=== PATIENT | male | born 1945 | race Caucasian/White ===

== ENCOUNTER 2018-02-27 22:42 | Emergency (ER) | payer MEDICARE, OTHER ==
[2018-02-27 22:54] VITALS: RESP 18
--- NOTE | 2018-02-27 23:39 | XR ---
EXAMINATION TYPE: XR ankle complete RT DATE OF EXAM: 02/27/2018 COMPARISON: NONE HISTORY: Ankle pain TECHNIQUE: 3 views FINDINGS: I see no fracture nor dislocation. Ankle mortise is anatomic. There is an Achilles calcanea l spur. IMPRESSION: Calcaneal spurring. No fracture seen.
--- NOTE | 2018-02-28 00:42 | ED ---
Lower Extremity Injury HPI - General Chief Complaint: Extremity Injury, Lower Stated Complaint: Ankle Injury Time Seen by Provider: 02/28/18 00:27 Source: patient, RN notes reviewed Mode of arrival: ambulatory Limitations: no limitations - History of Present Illness Initial Comments: This is a 72-year-old male who presents to the emergency department with chief complaint of right ankle injury. Patient states that at 4 PM he was pushing a bin of cedar. He states that he felt a sudden tear in his ankle like something gave away. He thinks that he tore his Achilles tendon. He complains of pain to the right ankle and right calf. Denies any other injuries or trauma. States he is bearing weight and ambulating but that it is sore. Denies any recent illnesses or infections. Denies fevers or chills, chest pain shortness breath, abdominal pain, nausea or vomiting. - Related Data Allergies Allergy/AdvReac Type Severity Reaction Status Date / Time No Known Allergies Allergy Verified 02/27/18 22:53 Review of Systems ROS Statement: Those systems with pertinent positive or pertinent negative responses have been documented in the HPI. ROS Other: All systems not noted in ROS Statement are negative. Past Medical History Past Medical History: Hyperlipidemia History of Any Multi-Drug Resistant Organisms: None Reported Past Surgical History: Orthopedic Surgery Past Psychological History: No Psychological Hx Reported Smoking Status: Never smoker Past Alcohol Use History: Occasional Past Drug Use History: None Reported General Exam - General Exam Comments Initial Comments: General: Awake and alert, well-developed; in no apparent distress. Lying comfortably on ED stretcher with cane at bedside. HEENT: Head atraumatic, normocephalic. Pupils are equal, round and reactive to light. Extraocular movements intact. Oropharynx moist without erythema or exudate. Neck: Supple. Normal ROM. Cardiovascular: Regular rate and rhythm. No murmurs, rubs or gallops. Chest symmetrical. Respiratory: Lungs clear to auscultation bilaterally. No wheezes, rales or rhonchi. Normal respiratory effort with no use of accessory muscles. Musculoskeletal: Normal range of motion of the right ankle. Patient is able to plantar and dorsiflex against resistance. Tenderness on palpation of the calf. No swelling, erythema, ecchymosis noted. Sensation is intact. Pedal pulses are 2+ equal and palpable bilaterally. Achilles tendon is palpable and attached to calcaneus. Skin: [place], warm and dry without rashes or lesions. Neurological: Alert and oriented x3. CN II-XII grossly intact. Speech is fluent and answers are appropriate. No focal neuro deficits. Psychiatric: Normal mood and affect. No overt signs of depression or anxiety noted. Limitations: no limitations Course Vital Signs 02/27/18 22:52 Temperature 98.6 F Pulse Rate 79 Respiratory 18 Rate Blood Pressure 157/86 O2 Sat by Pulse 97 Oximetry Medical Decision Making - Medical Decision Making This is a 72-year-old male who presents to the emergency department with chief complaint of acute onset right ankle and calf pain. Patient states that he was pushing a bin and felt instant pain in his right ankle and calf. He states that something "gave away." He believes he tore his Achilles tendon. Patient is able to bear weight and ambulate. He has normal range of motion of the right ankle and can plantar and dorsiflex against resistance. Achilles tendon is palpable. Patient is neurovascularly intact. Patient likely suffering from muscle strain. Recommend rest, ice and follow-up with orthopedics. Patient's vital signs are stable and he is in no acute distress. He will be discharged home at this time. He is in agreement with plan and voices understanding. All questions answered. Disposition Clinical Impression: Strain of calf muscle Disposition: HOME SELF-CARE Condition: Good Instructions: Muscle Strain (ED) Additional Instructions: Please rest, ice and follow-up with orthopedics within 1-2 days. Please follow up with primary care provider within 1-2 days. Return to emergency department if symptoms should worsen or any concerns arise. Is patient prescribed a controlled substance at d/c from ED?: No Referrals: Lela Burgos MD [Primary Care Provider] - 1-2 days Edgard Reyes DO [Doctor of Osteopathic Medicine] - 1-2 days Time of Disposition: 00:41
[2018-02-28] MEDS ORDERED: cloNIDine HCL 0.1 MG TAB PO STA (01:29)
[2018-02-28 02:58] VITALS: BP 177/100; PULSE 65; TEMP 97.9
== END 2018-02-28 02:58 | disposition home or self-care (01) ==
LOC: EC 22:42
DX: S86.811A Strain of other muscle(s) and tendon(s) at lower leg level, right leg, initial encounter (principal); M25.571 Pain in right ankle and joints of right foot; X50.0XXA Overexertion from strenuous movement or load, initial encounter; Y93.89 Activity, other specified
CPT/HCPCS: 99283

== ENCOUNTER → 2019-09-18 | Outpatient (CLI) | payer MEDICARE, OTHER ==
--- NOTE | 2019-09-18 11:28 | XR ---
EXAMINATION TYPE: XR KUB DATE OF EXAM: 09/18/2019 COMPARISON: 06/29/2012 HISTORY: Pain TECHNIQUE: One view abdominal series FINDINGS: The osseous structures are intact. The bowel gas pattern is nonspecific. Hypertrophic changes of the acetabulum can be associated with femoral acetabular impingement. Mild arthropathy. Hypertrophic and degenerative changes of the spine. There are calcification seen in the kidney the larger is linear in configuration extending a length o f 5 mm the other measures 2 mm. There are two 3 mm calcifications overlying the right transverse pro cess of L3. IMPRESSION: 1. There are 2 right renal calculi with suspected to right mid ureteral calculi. The ureteral calculi measuring 3 mm.
== END | disposition home or self-care (01) ==
LOC: RADXRMAIN 11:00
PROVIDERS: ATTEND Urology
DX: N20.0 Calculus of kidney (principal); N20.1 Calculus of ureter
CPT/HCPCS: 74018

== ENCOUNTER → 2019-09-26 | Outpatient (CLI) | payer MEDICARE, OTHER ==
--- NOTE | 2019-09-26 13:19 | CT ---
EXAMINATION TYPE: CT abdomen pelvis wo con DATE OF EXAM: 09/26/2019 COMPARISON: X-ray of 1231 HISTORY: Right sided pain with Hematuria. History of stones. CT DLP: 453.8 mGycm Automated exposure control for dose reduction was used. TECHNIQUE: Helical acquisition of images was performed from the lung bases through the pelvis. FINDINGS: LUNG BASES: No significant abnormality is appreciated. LIVER/GB: Hyperdensity within the posterior segment right lobe liver measuring 1 cm and 7 Hounsfield units compatible simple cyst. PANCREAS: No significant abnormality is seen. SPLEEN: Splenic granuloma identified. ADRENALS: No significant abnormality is seen. KIDNEYS: No significant abnormality is seen. Right kidney: There is mild right hydronephrosis. Within the upper pole there is a 3 mm calculus invo lving the calyx. There is a satellite adjacent to millimeter calculus. Lower pole is a 1 mm calculus seen on coronal image 52. Left kidney: There is no hydronephrosis or nephrolithiasis. Ureters: No calculi noted within the left ureter. There there are 2 calculi within the proximal right ureter immediately adjacent to one another measuring 4.5 mm and 3.0 mm. Findings result in mild righ t hydronephrosis. No additional ureteral calculi noted. URINARY BLADDER: No significant abnormality is seen. ADENOPATHY: None visualized. OSSEOUS STRUCTURES: Hypertrophic and degenerative changes of vertebral column. Arthropathy of the hi ps correlate for femoral acetabular impingement. BOWEL: Nonspecific gas pattern with no obstruction. Diverticulosis noted. OTHER: Aorta of normal caliber. No free fluid. Prostate appears prominent. Left-sided fat-containing inguinal hernias. Fat-containing periumbilical hernia noted. IMPRESSION: 1. Mild right hydronephrosis secondary to a 4.5 and 3.0 mm proximal right ureteral calculus. Calculi are seen immediately adjacent to each other within the proximal right ureter 2. There are three right renal calculi measuring 5 mm or less as discussed above. 3. Mild prostate hypertrophy correlate clinically. 4. Colonic diverticulosis.
== END | disposition home or self-care (01) ==
LOC: RADCTMAIN 12:20
PROVIDERS: ATTEND Urology
DX: N13.2 Hydronephrosis with renal and ureteral calculous obstruction (principal); N40.0 Benign prostatic hyperplasia without lower urinary tract symptoms; K57.30 Diverticulosis of large intestine without perforation or abscess without bleeding
CPT/HCPCS: 74176

== ENCOUNTER → 2020-02-20 | Outpatient (CLI) | payer MEDICARE, OTHER ==
--- NOTE | 2020-02-20 17:25 | US ---
EXAMINATION TYPE: US kidneys/renal and bladder DATE OF EXAM: 02/20/2020 COMPARISON: CT abdomen and pelvis September 2019 CLINICAL HISTORY: N20.0 kidney stones. Hx renal stones. No pain at this time. Hx of intermittent bl ood in urine. EXAM MEASUREMENTS: Right Kidney: 9.4 x 4.0 x 5.2 cm Left Kidney: 11.1 x 4.5 x 5.1 cm Right Kidney: Superior echogenic focus with shadow = 0.4 x 0.5 cm Left Kidney: lower pole cystic appearing lesion in anterior cortical region = 1.0 x 0.7 cm. Bladder: Multiple circular echogenic lesions adjacent to wall. Largest on right - 1.3 x 1.3 cm. Lar gest on left = 0.9 x 0.8 cm Bilateral Jets seen There is no evidence for hydronephrosis at this point in time. There is 5 mm nonshadowing hyperechoic focus upper pole of the right kidney likely corresponding to the calculus axial image 47. No concer rosa masses are identified. The urinary bladder is not greatly distended. Bilateral ureteral jets a re seen. There are round peripheral masses or polyps in the bladder up to 9 mm in size. IMPRESSION: Several small peripheral round masses or polyps in the bladder. Advise further investigat ion with cystoscopy given patient's symptoms to better evaluate.
== END | disposition home or self-care (01) ==
LOC: RADUSWWP 15:20
PROVIDERS: ATTEND Family Medicine
DX: N39.0 Urinary tract infection, site not specified (principal)
CPT/HCPCS: 76770

== ENCOUNTER → 2022-02-26 | Outpatient (CLI) | payer MEDICARE, OTHER ==
--- NOTE | 2022-02-26 14:41 | US ---
EXAMINATION TYPE: US venous doppler duplex LE RT DATE OF EXAM: 02/26/2022 2:25 PM COMPARISON: NONE CLINICAL HISTORY: Pain in right lower leg. pain in leg SIDE PERFORMED: Right TECHNIQUE: The lower extremity deep venous system is examined utilizing real time linear array sonog sam with graded compression, doppler sonography and color-flow sonography. VESSELS IMAGED: Common Femoral Vein Deep Femoral Vein Greater Saphenous Vein * Femoral Vein Popliteal Vein Small Saphenous Vein * Proximal Calf Veins (* superficial vessels) Right Leg: Negative for DVT IMPRESSION: 1. Right lower extremity ultrasound negative for deep venous thrombosis.
== END | disposition home or self-care (01) ==
LOC: RADUSWWP 14:02
PROVIDERS: ATTEND Family Medicine
DX: M79.661 Pain in right lower leg (principal)

== ENCOUNTER 2023-02-02 09:31 | Emergency (ER) | payer MEDICARE, OTHER ==
[2023-02-02 09:45] VITALS: TEMP 98
[2023-02-02] MEDS ORDERED: IPRATROPIUM-ALBUTEROL 3 ML NEB INHALATION STA (10:20)
--- NOTE | 2023-02-02 10:45 | ED ---
General Adult HPI - General Chief complaint: Shortness of Breath Stated complaint: low 02 Time Seen by Provider: 02/02/23 10:09 Source: patient, RN notes reviewed Mode of arrival: ambulatory Limitations: no limitations - History of Present Illness Initial comments: 77-year-old male presents to the emergency department with chief complaint of oxygen at 90%. Patient states that he went to his primary care physician on Tuesday and was diagnosed with a "bacterial infection" patient states that he has been on antibiotics and steroids since that time. He states that since that time he has been monitoring his oxygen at home and this morning he states his oxygen was 90-91%. He reports no shortness of breath at that time. He states that he was prescribed a nebulizer but he has been unable to obtain it at home. He states that he has had a low-grade fever around 100 yesterday. Patient endorses a productive cough. He states that he has some wheezing typically and takes an inhaler but states he has no history of asthma or COPD. Patient is a nonsmoker. Past medical history includes hypertension and hyperlipidemia. - Related Data Home Medications Medication Instructions Recorded Confirmed Aspirin EC [Ecotrin Low Dose] 81 mg PO DAILY 02/02/23 02/02/23 Multivit-Min/FA/Lycopen/Lutein 1 tab PO HS 02/02/23 02/02/23 [Centrum Silver Tablet] [place]-3/Dha/Epa/Fish Oil [Fish Oil 1 cap PO HS 02/02/23 02/02/23 1,000 mg Softgel] Simvastatin [Zocor] 40 mg PO HS 02/02/23 02/02/23 amLODIPine BESYLATE/BENAZEPRIL 1 cap PO DAILY 02/02/23 02/02/23 [Lotrel 5-10 mg Capsule] carvediloL [Coreg] 3.125 mg PO BID 02/02/23 02/02/23 Previous Rx's Medication Instructions Recorded predniSONE 10 mg PO BID #10 tab 02/02/23 Allergies Allergy/AdvReac Type Severity Reaction Status Date / Time No Known Allergies Allergy Verified 02/02/23 11:27 Review of Systems ROS Statement: Those systems with pertinent positive or pertinent negative responses have been documented in the HPI. ROS Other: All systems not noted in ROS Statement are negative. Past Medical History Past Medical History: Hyperlipidemia History of Any Multi-Drug Resistant Organisms: None Reported Past Surgical History: Hernia Repair, Orthopedic Surgery Past Psychological History: No Psychological Hx Reported Smoking Status: Former smoker Past Alcohol Use History: Occasional Past Drug Use History: None Reported General Exam Limitations: no limitations General appearance: alert, in no apparent distress Head exam: Present: atraumatic, normocephalic, normal inspection Eye exam: Present: normal appearance ENT exam: Present: normal exam, mucous membranes moist Neck exam: Present: normal inspection. Absent: tenderness, meningismus, lymphadenopathy Respiratory exam: Present: wheezes Cardiovascular Exam: Present: regular rate, normal rhythm, normal heart sounds. Absent: systolic murmur, diastolic murmur, rubs, gallop, clicks GI/Abdominal exam: Present: soft, normal bowel sounds. Absent: distended, tenderness, guarding, rebound, rigid Extremities exam: Present: normal inspection, full ROM, normal capillary refill. Absent: tenderness, pedal edema, joint swelling, calf tenderness Back exam: Present: normal inspection Neurological exam: Present: alert, oriented X3 Psychiatric exam: Present: normal affect, normal mood Skin exam: Present: warm, dry, intact, normal color. Absent: rash Course Vital Signs 02/02/23 02/02/23 02/02/23 09:41 10:26 10:49 Temperature 98 F Pulse Rate 89 85 82 Respiratory 18 18 17 Rate Blood Pressure 147/83 134/96 O2 Sat by Pulse 96 93 L Oximetry 02/02/23 02/02/23 02/02/23 10:58 11:32 11:35 Temperature Pulse Rate 85 80 Respiratory 16 18 18 Rate Blood Pressure 131/90 O2 Sat by Pulse 95 Oximetry 02/02/23 13:41 Temperature Pulse Rate 88 Respiratory 16 Rate Blood Pressure 169/98 O2 Sat by Pulse 99 Oximetry Medical Decision Making - Medical Decision Making Was pt. sent in by a medical professional or institution (, PA, CAN STRIPER, urgent care, hospital, or custodial...) When possible be specific @ -No Did you speak to anyone other than the patient for history (EMS, parent, family, police, friend...)? What history was obtained from this source @ -No Did you review nursing and triage notes (agree or disagree)? Why? @ -I reviewed and agree with nursing and triage notes Were old charts reviewed (outside hosp., previous admission, EMS record, old EKG, old radiological studies, urgent care reports/EKG's, custodial records)? Report findings @ -No old charts were reviewed Differential Diagnosis (chest pain, altered mental status, abdominal pain women, abdominal pain men, vaginal bleeding, weakness, fever, dyspnea, syncope, headache, dizziness, GI bleed, back pain, seizure, CVA, palpatations, mental health, musculoskeletal)? @ -Differential Dyspnea: Coronary syndrome, arrhythmia, tamponade, asthma, COPD, pulmonary embolism, pneumonia, pneumothorax, pulmonary effusion, anaphylaxis, diabetic ketoacidosis, flailed chest, pulmonary contusion, diaphragmatic rupture, anemia, neuromuscular, this is not meant to be an all-inclusive list. EKG interpreted by me (3pts min.). @ -EKG was obtained which showed sinus rhythm with occasional PVCs, rate 80, SC 188, QRS 83, QTQTc [id number] X-rays interpreted by me (1pt min.). @ -Chest x-ray was obtained and showed no acute cardiopulmonary process CT interpreted by me (1pt min.). @ -CT angiogram for PE was obtained which showed no evidence for pulmonary emb olism U/S interpreted by me (1pt. min.). @ -None done What testing was considered but not performed or refused? (CT, X-rays, U/S, labs)? Why? @ -None What meds were considered but not given or refused? Why? @ -None Did you discuss the management of the patient with other professionals (professionals i.e. , PA, CAN STRIPER, lab, RT, psych nurse, social services specialist, physician compensation analyst, teacher, dog license officer supervisor, renal case manager)? Give summary @ -No Was smoking cessation discussed for >3mins.? @ -No Was critical care preformed (if so, how long)? @ -No Were there social determinants of health that impacted care today? How? (Homelessness, low income, unemployed, alcoholism, drug addiction, transportation, low edu. Level, literacy, decrease access to med. care, group home, rehab)? @ -No Was there de-escalation of care discussed even if they declined (Discuss DNR or withdrawal of care, Hospice)? DNR status @ -No What co-morbidities impacted this encounter? (DM, HTN, Smoking, COPD, CAD, Cancer, CVA, ARF, Chemo, Hep., AIDS, mental health diagnosis, sleep apnea, morbid obesity)? @ -None Was patient admitted / discharged? Hospital course, mention meds given and route , prescriptions, significant lab abnormalities, going to OR and other pertinent info. @ -hospital course patient stable throughout the course of emergency department visit around 96% patient has not indicated treatment for upper resp infection including antibiotics. Patient states he has a prescription for nebulizer medication that he is going to or from the pharmacy. Patient received a steroid shot yesterday and an IM antibiotic. Chest x-ray was obtained which showed no acute cardiopulmonary process. CT angios obtained which showed no evidence for pulmonary embolism. CBC and CMP were within normal limits. Patient was given a DuoNeb. Patient reports improvement in symptoms after the nebulizer. Prescription was sent in for by mouth prednisone. Case discussed with my attending, Dr. Phillip Undiagnosed new problem with uncertain prognosis? @ -No Drug Therapy requiring intensive monitoring for toxicity (Heparin, Nitro, Insulin, Cardizem)? @ -No Were any procedures done? @ -No Diagnosis/symptom? @ -URI Acute, or Chronic, or Acute on Chronic? @ -Acute Uncomplicated (without systemic symptoms) or Complicated (systemic symptoms)? @ -Uncomplicated Side effects of treatment? @ -No Exacerbation, Progression, or Severe Exacerbation? @ -No Poses a threat to life or bodily function? How? (Chest pain, USA, MD, pneumonia, PE, COPD, DKA, ARF, appy, cholecystitis, CVA, Diverticulitis, Homicidal, Suicidal, threat to staff... and all critical care pts) @ -No - Lab Data Result diagrams: 02/02/23 10:50 02/02/23 10:50 Lab Results 02/02/23 02/02/23 02/02/23 Range/Units 10:50 10:50 10:50 WBC 10.4 (3.8-10.6) k/uL RBC 4.44 (4.30-5.90) m/uL Hgb 13.4 (13.0-17.5) gm/dL Hct 40.5 (39.0-53.0) % MCV 91.2 (80.0-100.0) fL MCH 30.1 (25.0-35.0) pg MCHC 33.0 (31.0-37.0) g/dL RDW 12.9 (11.5-15.5) % Plt Count 282 (150-450) k/uL MPV 7.9 Neutrophils % 87 % Lymphocytes % 8 % Monocytes % 4 % Eosinophils % 0 % Basophils % 0 % Neutrophils # 9.1 H (1.3-7.7) k/uL Lymphocytes # 0.8 L (1.0-4.8) k/uL Monocytes # 0.4 (0-1.0) k/uL Eosinophils # 0.0 (0-0.7) k/uL Basophils # 0.0 (0-0.2) k/uL PT 9.9 (9.0-12.0) sec INR 0.9 (<1.2) APTT 23.6 (22.0-30.0) sec Sodium 139 (137-145) mmol/L Potassium 5.1 (3.5-5.1) mmol/L Chloride 100 (98-107) mmol/L Carbon Dioxide 31 H (22-30) mmol/L Anion Gap 8 mmol/L BUN 20 (9-20) mg/dL Creatinine 1.08 (0.66-1.25) mg/dL Est GFR (CKD-EPI)AfAm 76 (>60 ml/min/1.73 sqM) Est GFR (CKD-EPI)NonAf 66 (>60 ml/min/1.73 sqM) Glucose 102 H (74-99) mg/dL Calcium 9.7 (8.4-10.2) mg/dL Total Bilirubin 0.4 (0.2-1.3) mg/dL AST 32 (17-59) U/L ALT 31 (4-49) U/L Alkaline Phosphatase 90 (38-126) U/L Troponin I (0.000-0.034) ng/mL Total Protein 7.7 (6.3-8.2) g/dL Albumin 4.5 (3.5-5.0) g/dL 02/02/23 Range/Units 10:50 WBC (3.8-10.6) k/uL RBC (4.30-5.90) m/uL Hgb (13.0-17.5) gm/dL Hct (39.0-53.0) % MCV (80.0-100.0) fL MCH (25.0-35.0) pg MCHC (31.0-37.0) g/dL RDW (11.5-15.5) % Plt Count (150-450) k/uL MPV Neutrophils % % Lymphocytes % % Monocytes % % Eosinophils % % Basophils % % Neutrophils # (1.3-7.7) k/uL Lymphocytes # (1.0-4.8) k/uL Monocytes # (0-1.0) k/uL Eosinophils # (0-0.7) k/uL Basophils # (0-0.2) k/uL PT (9.0-12.0) sec INR (<1.2) APTT (22.0-30.0) sec Sodium (137-145) mmol/L Potassium (3.5-5.1) mmol/L Chloride (98-107) mmol/L Carbon Dioxide (22-30) mmol/L Anion Gap mmol/L BUN (9-20) mg/dL Creatinine (0.66-1.25) mg/dL Est GFR (CKD-EPI)AfAm (>60 ml/min/1.73 sqM) Est GFR (CKD-EPI)NonAf (>60 ml/min/1.73 sqM) Glucose (74-99) mg/dL Calcium (8.4-10.2) mg/dL Total Bilirubin (0.2-1.3) mg/dL AST (17-59) U/L ALT (4-49) U/L Alkaline Phosphatase (38-126) U/L Troponin I <0.012 (0.000-0.034) ng/mL Total Protein (6.3-8.2) g/dL Albumin (3.5-5.0) g/dL Disposition Clinical Impression: Upper respiratory infection Disposition: HOME SELF-CARE Condition: Stable Instructions (If sedation given, give patient instructions): Upper Respiratory Infection (ED) Additional Instructions: Please return to the Emergency Department if symptoms worsen or any other concerns. Prescriptions: predniSONE 10 mg PO BID #10 tab Is patient prescribed a controlled substance at d/c from ED?: No Referrals: Won Berry MD [Primary Care Provider] - 1-2 days Time of Disposition: 13:43
[2023-02-02 11:01] LABS: Basophils % (A) 0 %; Eosinophils % (A) 0 %; HCT 40.5 % (39.0-53.0); HGB 13.4 gm/dL (13.0-17.5); Lymphocytes # (A) 0.8 k/uL (1.0-4.8); Lymphocytes % (A) 8 %; MCH 30.1 pg (25.0-35.0); MCV 91.2 fL (80.0-100.0); Mean Platelet Volume 7.9; Monocytes # (A) 0.4 k/uL (0-1.0); Monocytes % (A) 4 %; Neutrophils # (A) 9.1 k/uL (1.3-7.7); Neutrophils % (A) 87 %; Platelet Count 282 k/uL (150-450); RBC 4.44 m/uL (4.30-5.90); RDW 12.9 % (11.5-15.5); WBC 10.4 k/uL (3.8-10.6)
--- NOTE | 2023-02-02 11:16 | XR ---
EXAMINATION TYPE: XR chest 2V DATE OF EXAM: 02/02/2023 11:10 AM COMPARISON: None TECHNIQUE: XR chest 2V Frontal and lateral views of the chest. CLINICAL INDICATION:Male, 77 years old with history of difficulty breathing; FINDINGS: Lungs/Pleura: There is no evidence of pleural effusion, focal consolidation, or pneumothorax. Pulmonary vascularity: Unremarkable. Heart/mediastinum: Cardiomediastinal silhouette is unremarkable. Musculoskeletal: No acute osseous pathology. Right-sided remote rib fracture of rib 8. IMPRESSION: No acute cardiopulmonary disease/process.
[2023-02-02 11:18] LABS: Albumin 4.5 g/dL (3.5-5.0); Calcium 9.7 mg/dL (8.4-10.2); Potassium 5.1 mmol/L (3.5-5.1); Total Bilirubin 0.4 mg/dL (0.2-1.3); Total Protein 7.7 g/dL (6.3-8.2)
[2023-02-02 11:23] LABS: Partial Thromboplastin Time 23.6 sec (22.0-30.0)
[2023-02-02 12:13] LABS: INR 0.9 (<1.2); Prothrombin Time 9.9 sec (9.0-12.0)
--- NOTE | 2023-02-02 12:43 | CT ---
EXAMINATION TYPE: CT chest angio for PE CT DLP: 420.8 mGycm, Automated exposure control for dose reduction was used. DATE OF EXAM: 02/02/2023 12:33 PM COMPARISON: Chest radiograph from same day. CT abdomen pelvis 09/26/2019 CLINICAL INDICATION:Male, 77 years old with history of sob; Low O2, shortness of breath TECHNIQUE/CONTRAST: CTA scan of the thorax is performed with IV Contrast, patient injected with 100, wasted 13 ml mL of I sovue 300, pulmonary embolism protocol. MIP images are created and reviewed. FINDINGS: Respiratory motion limits evaluation. Pulmonary Artery: There is no evidence for a central filling defect within the pulmonary vasculature to suggest acute pulmonary embolism. Limited evaluation of the segmental and subsegmental branches se condary to bolus timing. The pulmonary artery is of normal size. Lungs/Pleura: No evidence of focal consolidation, pleural effusion or pneumothorax. Airway: Large airways are patent. Heart: Heart is within normal limits for size. No pericardial effusion. Mild coronary arterial calcif ications. Vasculature: No evidence of aortic aneurysm. Mediastinum: No evidence of adenopathy. Musculoskeletal: No acute osseous abnormalities Soft Tissues: Unremarkable. Lower neck: No significant findings. Upper Abdomen: Partially visualized moderate right hydronephrosis with thinning of the renal parenchy ma. Nonobstructive right renal 4 mm calculus. IMPRESSION: 1. No evidence of central pulmonary embolism. Limited evaluation of the segmental and subsegmental br anches. 2. Partially visualized moderate right hydronephrosis with cortical thinning suggesting chronic proce ss. Additional nonobstructive right renal calculus. Consider further evaluation with noncontrast CT abdomen pelvis.
[2023-02-02 13:42] VITALS: BP 169/98; PULSE 88; RESP 16
== END 2023-02-02 14:40 | disposition home or self-care (01) ==
LOC: EC 09:31
DX: J06.9 Acute upper respiratory infection, unspecified (principal); E78.5 Hyperlipidemia, unspecified; Z87.891 Personal history of nicotine dependence; Z79.899 Other long term (current) drug therapy; Z79.82 Long term (current) use of aspirin
CPT/HCPCS: 99285 ×2; 36415; 94640; 93005; 80053; 84484; 85025; 85610; 85730; 71046; 71275; Q9967

== ENCOUNTER 2023-02-05 20:49 | Emergency (ER) | payer MEDICARE, OTHER ==
[2023-02-05 20:57] VITALS: TEMP 99.2
[2023-02-05 21:14] VITALS: RESP 18
[2023-02-05] MEDS ORDERED: KETOROLAC 15 MG/ML 1 ML VIAL IVP STA (21:29)
--- NOTE | 2023-02-05 21:55 | XR ---
EXAMINATION TYPE: XR chest 2V DATE OF EXAM: 02/05/2023 9:43 PM COMPARISON: Chest x-ray 02/02/2023 TECHNIQUE: XR chest 2V . CLINICAL INDICATION:Male, 77 years old with history of Chest Pain; FINDINGS: Lungs/Pleura: There is no evidence of pleural effusion, focal consolidation, or pneumothorax. Pulmonary vascularity: Unremarkable. Heart/mediastinum: Cardiomediastinal silhouette is unremarkable. Musculoskeletal: No acute osseous pathology. IMPRESSION: No acute cardiopulmonary disease/process.
[2023-02-05 22:21] LABS: Basophils % (A) 0 %; Eosinophils # (A) 0.2 k/uL (0-0.7); Eosinophils % (A) 1 %; HCT 37.6 % (39.0-53.0); HGB 12.5 gm/dL (13.0-17.5); Lymphocytes # (A) 1.5 k/uL (1.0-4.8); Lymphocytes % (A) 12 %; MCH 30.7 pg (25.0-35.0); MCHC 33.1 g/dL (31.0-37.0); MCV 92.8 fL (80.0-100.0); Mean Platelet Volume 8.4; Monocytes # (A) 1.1 k/uL (0-1.0); Monocytes % (A) 9 %; Neutrophils # (A) 9.1 k/uL (1.3-7.7); Neutrophils % (A) 76 %; Platelet Count 275 k/uL (150-450); RBC 4.05 m/uL (4.30-5.90); RDW 12.7 % (11.5-15.5); WBC 12.1 k/uL (3.8-10.6)
[2023-02-05 22:33] LABS: Calcium 9.1 mg/dL (8.4-10.2); Potassium 4.6 mmol/L (3.5-5.1); Total Bilirubin 0.4 mg/dL (0.2-1.3); Total Protein 6.9 g/dL (6.3-8.2)
[2023-02-05 22:41] LABS: INR 0.9 (<1.2); Partial Thromboplastin Time 22.3 sec (22.0-30.0); Prothrombin Time 9.8 sec (9.0-12.0)
[2023-02-05] MEDS ORDERED: guaiFENesin-DM 100-10MG/5ML 10 ML CUP PO STA (23:25)
--- NOTE | 2023-02-06 00:07 | ED ---
SOB HPI - General Chief Complaint: Shortness of Breath Stated Complaint: Upper Resp Infection Time Seen by Provider: 02/05/23 21:09 Source: patient Mode of arrival: ambulatory Limitations: no limitations - History of Present Illness Initial Comments: 77-year-old male with past medical history of hyperlipidemia who presents to the emergency department reporting right-sided chest pain. Patient has had upper respiratory symptoms for the past week. He was seen in the emergency department on the for similar complaint. Chest x-ray and CT of the chest was performed which demonstrated no acute process. He previously saw his primary care doctor and had a Covid test performed which was negative. Patient has been on antibiotics, steroids and using his nebulizer. Patient continues to report to cough however improved. He presents today as he did start developing a right-sided lower chest wall pain especially with coughing. He denies previous cardiac disease. Has had stress testing which has been normal. No fevers. No nausea or vomiting. No other alleviating, precipitating or modifying factors - Related Data Home Medications Medication Instructions Recorded Confirmed Aspirin EC [Ecotrin Low Dose] 81 mg PO DAILY 02/02/23 02/05/23 Multivit-Min/FA/Lycopen/Lutein 1 tab PO HS 02/02/23 02/05/23 [Centrum Silver Tablet] [place]-3/Dha/Epa/Fish Oil [Fish Oil 1 cap PO HS 02/02/23 02/05/23 1,000 mg Softgel] Simvastatin [Zocor] 40 mg PO HS 02/02/23 02/05/23 amLODIPine BESYLATE/BENAZEPRIL 1 cap PO DAILY 02/02/23 02/05/23 [Lotrel 5-10 mg Capsule] carvediloL [Coreg] 3.125 mg PO BID 02/02/23 02/05/23 Ipratropium-Albuterol Nebulize 3 ml INHALATION RT-Q6H PRN 02/05/23 02/05/23 [Duoneb 0.5 mg-3 mg/3 ml Soln] Previous Rx's Medication Instructions Recorded predniSONE 10 mg PO BID #10 tab 02/02/23 Ibuprofen [Motrin] 600 mg PO Q8HR PRN #30 tab 02/06/23 guaiFENesin-DM 100-10MG/5ML 10 ml PO Q6HR #120 ml 02/06/23 [Robitussin DM] Allergies Allergy/AdvReac Type Severity Reaction Status Date / Time No Known Allergies Allergy Verified 02/05/23 21:43 Review of Systems ROS Statement: Those systems with pertinent positive or pertinent negative responses have been documented in the HPI. ROS Other: All systems not noted in ROS Statement are negative. Past Medical History Past Medical History: Hyperlipidemia Additional Past Medical History / Comment(s): pleurisy History of Any Multi-Drug Resistant Organisms: None Reported Past Surgical History: Hernia Repair, Orthopedic Surgery Past Psychological History: No Psychological Hx Reported Smoking Status: Former smoker Past Alcohol Use History: Occasional Past Drug Use History: None Reported General Exam Limitations: no limitations General appearance: alert, in no apparent distress Head exam: Present: atraumatic, normocephalic, normal inspection Eye exam: Present: normal appearance, PERRL, EOMI. Absent: scleral icterus, conjunctival injection, periorbital swelling ENT exam: Present: normal exam, mucous membranes moist Neck exam: Present: normal inspection. Absent: tenderness, meningismus, lymphad enopathy Respiratory exam: Present: normal lung sounds bilaterally. Absent: respiratory distress, wheezes, rales, rhonchi, stridor Cardiovascular Exam: Present: regular rate, normal rhythm, normal heart sounds. Absent: systolic murmur, diastolic murmur, rubs, gallop, clicks GI/Abdominal exam: Present: soft, normal bowel sounds. Absent: distended, tenderness, guarding, rebound, rigid Extremities exam: Present: normal inspection, full ROM, normal capillary refill. Absent: tenderness, pedal edema, joint swelling, calf tenderness Back exam: Present: normal inspection Neurological exam: Present: alert, oriented X3, CN II-XII intact Psychiatric exam: Present: normal affect, normal mood Skin exam: Present: warm, dry, intact, normal color. Absent: rash Course Vital Signs 02/05/23 02/05/23 02/05/23 20:54 21:12 22:38 Temperature 99.2 F Pulse Rate 99 82 73 Respiratory 22 18 18 Rate Blood Pressure 153/92 169/93 O2 Sat by Pulse 95 93 L 92 L Oximetry 02/06/23 00:20 Temperature Pulse Rate 82 Respiratory 18 Rate Blood Pressure 158/102 O2 Sat by Pulse 95 Oximetry Medical Decision Making - Medical Decision Making Was pt. sent in by a medical professional or institution (Dr., PA, [employer], urgent care, hospital, or [place] [facility] facility...) When possible be specific @ -No Did you speak to anyone other than the patient for history (EMS, parent, family, police, friend...)? What history was obtained from this source @ -No Did you review nursing and triage notes (agree or disagree)? Why? @ -I reviewed and agree with nursing and triage notes Were old charts reviewed (outside hosp., previous admission, EMS record, old EKG , old radiological studies, urgent care reports/EKG's, [place] [facility] facility records)? Report findings @ -Reviewed the patient's encounter on the were he had a CT of his chest performed Differential Diagnosis (chest pain, altered mental status, abdominal pain women, abdominal pain men, vaginal bleeding, weakness, fever, dyspnea, syncope, headache, dizziness, GI bleed, back pain, seizure, CVA, palpatations, mental health, musculoskeletal)? @ -Differential Chest Pain: Stable Angina, Unstable Angina, STEMI, NSTEMI Aortic Dissection, Pneumothorax, Musculoskeletal, Esophageal Spasm GERD, Cholecystitis, Pancreatitis, Zoster, this is not meant to be an all-inclusive list. EKG interpreted by me (3pts min.). @ -EKG interpreted by me demonstrates normal sinus rhythm X-rays interpreted by me (1pt min.). @ -EKG demonstrates no intrathoracic process CT interpreted by me (1pt min.). @ -None done U/S interpreted by me (1pt. min.). @ -None done What testing was considered but not performed or refused? (CT, X-rays, U/S, labs)? Why? @ -None What meds were considered but not given or refused? Why? @ -None Did you discuss the management of the patient with other professionals (pro fessionals i.e. MACARIO Rodas, [employer], lab, RT, psych nurse, rn social services, pipe fitter supervisor, teacher, [employer] officer, patient case coordinator)? Give summary @ -No Was smoking cessation discussed for >3mins.? @ -No Was critical care preformed (if so, how long)? @ -No Were there social determinants of health that impacted care today? How? (Homelessness, low income, unemployed, alcoholism, drug addiction, transporta tion, low edu. Level, literacy, decrease access to med. care, residential, rehab)? @ -No Was there de-escalation of care discussed even if they declined (Discuss DNR or withdrawal of care, Hospice)? DNR status @ -No What co-morbidities impacted this encounter? (DM, HTN, Smoking, COPD, CAD, Cancer, CVA, ARF, Chemo, Hep., AIDS, mental health diagnosis, sleep apnea, morbid obesity)? @ -None Was patient admitted / discharged? Hospital course, mention meds given and route, prescriptions, significant lab abnormalities, going to OR and other pertinent info. @ -Upon arrival patient is placed into room 5. Thorough history and physical exam was performed. Laboratory studies are repeated. Viral swab was performed. Chest x-ray is completed which demonstrates no acute process. Patient was given Toradol with improvement in his symptoms. Patient's wants to go home at this time. Recommend that he finished the rest of the prednisone through tomorrow. Continue breathing treatments every 4 hours. He is given a prescription for Motrin 600 which she is to start taking tomorrow night. He also given a prescription for codeine cough syrup. Instructed to see his doctor in 2-4 days or return for any new or worsening symptoms. Patient agreeable and was discharged home in stable condition Undiagnosed new problem with uncertain prognosis? @ -No Drug Therapy requiring intensive monitoring for toxicity (Heparin, Nitro, Insulin, Cardizem)? @ -No Were any procedures done? @ -No Diagnosis/symptom? @ -Acute pleuritic chest pain, acute cough Acute, or Chronic, or Acute on Chronic? @ -Acute Uncomplicated (without systemic symptoms) or Complicated (systemic symptoms)? @ -Complicated Side effects of treatment? @ -No Exacerbation, Progression, or Severe Exacerbation? @ -No Poses a threat to life or bodily function? How? (Chest pain, [place], IA, pneumonia, PE, COPD, DKA, ARF, appy, cholecystitis, CVA, Diverticulitis, Homicidal, Suicidal, threat to staff... and all critical care pts) @ -No - Lab Data Result diagrams: 02/05/23 22:04 02/05/23 22:04 Lab Results 02/05/23 02/05/23 02/05/23 Range/Units 21:35 22:04 22:04 WBC 12.1 H (3.8-10.6) k/uL RBC 4.05 L (4.30-5.90) m/uL Hgb 12.5 L (13.0-17.5) gm/dL Hct 37.6 L (39.0-53.0) % MCV 92.8 (80.0-100.0) fL MCH 30.7 (25.0-35.0) pg MCHC 33.1 (31.0-37.0) g/dL RDW 12.7 (11.5-15.5) % Plt Count 275 (150-450) k/uL MPV 8.4 Neutrophils % 76 % Lymphocytes % 12 % Monocytes % 9 % Eosinophils % 1 % Basophils % 0 % Neutrophils # 9.1 H (1.3-7.7) k/uL Lymphocytes # 1.5 (1.0-4.8) k/uL Monocytes # 1.1 H (0-1.0) k/uL Eosinophils # 0.2 (0-0.7) k/uL Basophils # 0.0 (0-0.2) k/uL PT 9.8 (9.0-12.0) sec INR 0.9 (<1.2) APTT 22.3 (22.0-30.0) sec Sodium (137-145) mmol/L Potassium (3.5-5.1) mmol/L Chloride (98-107) mmol/L Carbon Dioxide (22-30) mmol/L Anion Gap mmol/L BUN (9-20) mg/dL Creatinine (0.66-1.25) mg/dL Est GFR (CKD-EPI)AfAm (>60 ml/min/1.73 sqM) Est GFR (CKD-EPI)NonAf (>60 ml/min/1.73 sqM) Glucose (74-99) mg/dL Calcium (8.4-10.2) mg/dL Magnesium (1.6-2.3) mg/dL Total Bilirubin (0.2-1.3) mg/dL AST (17-59) U/L ALT (4-49) U/L Alkaline Phosphatase (38-126) U/L Troponin I (0.000-0.034) ng/mL NT-Pro-B Natriuret Pep pg/mL Total Protein (6.3-8.2) g/dL Albumin (3.5-5.0) g/dL Influenza Type A (PCR) Not Detected (Not Detectd) Influenza Type B (PCR) Not Detected (Not Detectd) RSV (PCR) Not Detected (Not Detectd) SARS-CoV-2 (PCR) Not Detected (Not Detectd) 02/05/23 02/05/23 02/05/23 Range/Units 22:04 22:04 22:04 WBC (3.8-10.6) k/uL RBC (4.30-5.90) m/uL Hgb (13.0-17.5) gm/dL Hct (39.0-53.0) % MCV (80.0-100.0) fL MCH (25.0-35.0) pg MCHC (31.0-37.0) g/dL RDW (11.5-15.5) % Plt Count (150-450) k/uL MPV Neutrophils % % Lymphocytes % % Monocytes % % Eosinophils % % Basophils % % Neutrophils # (1.3-7.7) k/uL Lymphocytes # (1.0-4.8) k/uL Monocytes # (0-1.0) k/uL Eosinophils # (0-0.7) k/uL Basophils # (0-0.2) k/uL PT (9.0-12.0) sec INR (<1.2) APTT (22.0-30.0) sec Sodium 140 (137-145) mmol/L Potassium 4.6 (3.5-5.1) mmol/L Chloride 103 (98-107) mmol/L Carbon Dioxide 26 (22-30) mmol/L Anion Gap 11 mmol/L BUN 31 H (9-20) mg/dL Creatinine 1.30 H (0.66-1.25) mg/dL Est GFR (CKD-EPI)AfAm 61 (>60 ml/min/1.73 sqM) Est GFR (CKD-EPI)NonAf 53 (>60 ml/min/1.73 sqM) Glucose 92 (74-99) mg/dL Calcium 9.1 (8.4-10.2) mg/dL Magnesium 2.0 (1.6-2.3) mg/dL Total Bilirubin 0.4 (0.2-1.3) mg/dL AST 28 (17-59) U/L ALT 28 (4-49) U/L Alkaline Phosphatase 80 (38-126) U/L Troponin I <0.012 (0.000-0.034) ng/mL NT-Pro-B Natriuret Pep 292 pg/mL Total Protein 6.9 (6.3-8.2) g/dL Albumin 4.0 (3.5-5.0) g/dL Influenza Type A (PCR) (Not Detectd) Influenza Type B (PCR) (Not Detectd) RSV (PCR) (Not Detectd) SARS-CoV-2 (PCR) (Not Detectd) - EKG Data EKG Comments: EKG interpreted by myself and demonstrates sinus rhythm with rate of 95. UT 186. QRS 86. QTC 374. No acute ST segment elevations or depressions Disposition Clinical Impression: Pleuritic chest pain, Cough Disposition: HOME SELF-CARE Condition: Stable Instructions (If sedation given, give patient instructions): Pleurisy (ED) Additional Instructions: Please start taking the Motrin tomorrow afternoon. Use the breathing treatments every 4-6 hours. Follow-up with your doctor and return for any new or worsening symptoms Prescriptions: Ibuprofen [Motrin] 600 mg PO Q8HR PRN #30 tab PRN Reason: Pain guaiFENesin-DM 100-10MG/5ML [Robitussin DM] 10 ml PO Q6HR #120 ml Is patient prescribed a controlled substance at d/c from ED?: Yes When asked, does pt state using other controlled substances?: No If prescribed controlled substance>3 days was MAPS reviewed?: Prescribed <3 Days Referrals: Won Berry MD [Primary Care Provider] - 1-2 days Time of Disposition: 00:07
[2023-02-06 00:21] VITALS: BP 158/102; PULSE 82
== END 2023-02-06 00:21 | disposition home or self-care (01) ==
LOC: EC 20:49
DX: R07.81 Pleurodynia (principal); R05.9 Cough, unspecified; E78.5 Hyperlipidemia, unspecified; Z87.891 Personal history of nicotine dependence; Z79.899 Other long term (current) drug therapy; Z79.82 Long term (current) use of aspirin; Z20.822 Contact with and (suspected) exposure to COVID-19
CPT/HCPCS: 36415; 93005; 83880; 80053; 83735; 84484; 85025; 85610; 85730; 87636; 71046; 99285; 96374; J1885

== ENCOUNTER → 2023-12-05 | Outpatient (CLI) | payer OTHER ==
--- NOTE | 2023-12-05 16:16 | CT ---
EXAMINATION TYPE: CT chest wo con DATE OF EXAM: 12/05/2023 COMPARISON: 02/02/2023 HISTORY: bronchitis/low oxygen CT DLP: 468.98 mGycm. Automated Exposure Control for Dose Reduction was Utilized. TECHNIQUE: CT scan of the thorax is performed without IV contrast. FINDINGS: LUNGS: The lungs are grossly clear, there is no concerning parenchymal mass or nodule identified. T here is no pleural effusion or pneumothorax seen. The tracheobronchial tree is patent. MEDIASTINUM: Lack of IV contrast is noted to limit evaluation for mediastinal and especially hilar ad enopathy. There are no definitive greater than 1 cm hilar or mediastinal lymph nodes. No cardiomega ly or pericardial effusion is seen. Limited scanning through the upper abdomen reveals persistent chronic hydronephrosis or parapelvic cy sts of the right kidney. There is a small 3 4 mm right renal calcification. IMPRESSION: 1. No acute cardiopulmonary disease. 2. No chronic lung disease or emphysema. 3. No interval change.
== END | disposition home or self-care (01) ==
LOC: RADCTMAIN 15:06
PROVIDERS: ATTEND Family Medicine
DX: J20.9 Acute bronchitis, unspecified (principal)
CPT/HCPCS: 71250

== ENCOUNTER → 2024-06-29 | Outpatient (CLI) | payer MEDICARE, OTHER ==
--- NOTE | 2024-06-29 12:07 | CT ---
EXAMINATION TYPE: CT abdomen wo con CT DLP: 539 mGycm, Automated exposure control for dose reduction was used. DATE OF EXAM: 06/29/2024 11:07 AM COMPARISON: CT abdomen pelvis 09/26/2019, CT chest 12/05/2023 CLINICAL INDICATION:Male, 78 years old with history of N13.30 UNSPECIFIED HYDRONEPHROSIS; Unspecified hydronephrosis RT kidney TECHNIQUE: Standard CT of the abdomen following the administration of oral contrast. Limited exam d ue to lack of intravenous contrast. Coronal and sagittal reformats were performed. FINDINGS: LOWER CHEST: The visualized lungs are clear. Coronary artery calcifications. ABDOMEN LIVER: Unremarkable noncontrast appearance GALLBLADDER AND BILE DUCTS: Unremarkable noncontrast appearance PANCREAS: Unremarkable noncontrast appearance SPLEEN: Not enlarged. Punctate calcified granulomas. ADRENAL GLANDS: Unremarkable noncontrast appearance. KIDNEYS AND URETERS: No left hydronephrosis. No left renal calculi. Nonobstructive right renal 3 mm c alculus. Moderate to severe right hydroureteronephrosis. No obstructing calculus identified within th e visualized proximal to mid ureter. There is cortical thinning throughout the right kidney. Mild non specific bilateral perinephric fat stranding. STOMACH AND BOWEL: Stomach and duodenum are unremarkable. No focal bowel wall thickening or surroundi ng inflammatory changes. Enteric contrast reaches the mid small bowel. No evidence of bowel obstructi on. PERITONEUM: No evidence of pneumoperitoneum or free fluid. VASCULATURE: Minimal atherosclerotic calcifications are present throughout the abdominal aorta and it s branches. No evidence of aortic aneurysm. MUSCULOSKELETAL: No acute osseous abnormalities. Mild disc degeneration changes are present throughou t the thoracolumbar spine. LYMPH NODES: No gross evidence for lymphadenopathy. SOFT TISSUE/ABDOMINAL WALL: Small fat filled umbilical hernia. IMPRESSION: 1. Moderate to severe right hydroureteronephrosis with cortical thinning suggesting long-term obstru ction. No obstructing calculus within the visualized portion of the proximal to mid right ureter. The distal portion is not included due to CT abdomen request. Similar appearance to prior CT chest 2023. Consider further evaluation with CT pelvis to assess for possible site of obstruction. 2. Nonobstructive right renal calculus. [facility], , 06/29/2024 12:04 PM
== END | disposition home or self-care (01) ==
LOC: RADCTMAIN 09:54
PROVIDERS: ATTEND Family Medicine
DX: N13.2 Hydronephrosis with renal and ureteral calculous obstruction (principal)
CPT/HCPCS: 74150